=== PATIENT | male | born 2000 | race Caucasian/White ===

== ENCOUNTER 2018-05-22 | Emergency (ER) | payer OTHER | END 2018-05-22 21:20 | disposition home or self-care (01) ==

== ENCOUNTER 2018-12-05 00:28 | Emergency (ER) | payer MEDICAID | END 2018-12-05 05:00 | disposition home or self-care (01) ==

== ENCOUNTER 2018-12-13 00:53 | Emergency (ER) | payer MEDICAID ==
--- NOTE | 2018-12-13 01:01 | EDPHY ---
H & P Stated Complaint: Cough, SI, sleep deprivation Time Seen by Provider: 12/13/18 01:01 HPI/ROS: HPI CHIEF COMPLAINT: Suicide ideation, aggressiveness. HISTORY OF PRESENT ILLNESS: Patient is a 18-year-old male, presents emergency room by walking into the front door, stating that he suicidal wants to kill himself. He states that he is homeless, he reports to me has a history of bipolar disorder not on any medications. Additionally complains of a sore throat. His main complaint suicidal ideation and worsening depression. Patient arrives in his verbally aggressive with myself and also takes physical aggressive stance in the room. Additionally the patient complains of a sore throat however will not expand further about details about this. Past Medical History: History of bipolar disorder according to the patient. Past Surgical History: Denies recent surgical history Social History: Denies recent drug use alcohol tobacco. Family History: Noncontributory ROS REVIEW OF SYSTEMS: 10 Systems were reviewed and negative with the exception of the elements mentioned in the history of present illness. Exam Constitutional angry, triage nursing summary reviewed, vital signs reviewed, awake/alert. Eyes normal conjunctivae and sclera, EOMI, PERRLA. HENT normal inspection, atraumatic, moist mucus membranes, no epistaxis, neck supple/ no meningismus, no raccoon eyes. Respiratory clear to auscultation bilaterally, normal breath sounds, no respiratory distress, no wheezing. Cardiovascular rate normal, regular rhythm, no murmur, no edema, distal pulses normal. Gastrointestinal soft, non-tender, no rebound, no guarding, normal bowel sounds, no distension, no pulsatile mass. Genitourinary no CVA tenderness. Musculoskeletal no midline vertebral tenderness, full range of motion, no calf swelling, no tenderness of extremities, no meningismus, good pulses, neurovascularly intact. Skin pink, warm, & dry, no rash, skin atraumatic. Neurologic awake, alert and oriented x 3, AAOx3, moves all 4 extremities equally, motor intact, sensory intact, CN II-XII intact, normal cerebellar, normal vision, normal speech. Psychiatric suicidal and depressed. Angry. Heme/Lymph/Immune no lymphadenopathy. Differential Diagnosis: Includes but is not limited to in a particular order underlying mood disorder, bipolar disorder, depression, suicidal ideation Medical Decision Making: Plan for this patient he will be placed on M1 hold, he will need blood draw for medical clearance. Will check strep and influenza. Re-evaluation: 1:11 a.m. Patient placed on M1 hold 0600AM: Patient sleeping. NAD. Medically cleared. Needs Mental Health Eval. Per patient, states he is Bipolar, homeless. 0700AM: Pending eval. Signed over to Dr. Melendez at this time. Source: Patient - Personal History Current Tetanus Diphtheria and Acellular Pertussis (TDAP): No - Medical/Surgical History Hx Asthma: No Hx Chronic Respiratory Disease: No Hx Diabetes: No Hx Cardiac Disease: No Hx Renal Disease: No Hx Cirrhosis: No Hx Alcoholism: No Hx HIV/AIDS: No Hx Splenectomy or Spleen Trauma: No Other PMH: Anxiety. seizure disorder - Social History Smoking Status: Never smoked Constitutional: Initial Vital Signs Temperature (C) 37.2 C 12/13/18 00:55 Heart Rate 79 12/13/18 00:55 Respiratory Rate 16 12/13/18 00:55 Blood Pressure 129/76 H 12/13/18 00:55 O2 Sat (%) 97 12/13/18 00:55 O2 Delivery Mode Room Air Allergies/Adverse Reactions: No Known Allergies Allergy (Unverified 12/13/18 00:55) Home Medications: Medication Instructions Recorded Tegretol 12/05/18 carBAMazepine [Tegretol] 200 mg PO BID #30 tab 12/05/18 Medical Decision Making - Data Points Laboratory Results: Laboratory Results 12/13/18 01:26 12/13/18 01:26 Departure - Departure Disposition: Law Enforcement/Court/Fdc Clinical Impression: Depression Qualifiers: Depression Type: other depression Qualified Code(s): F32.89 - Other specified depressive episodes Condition: Good Instructions: Depression (ED), Suicide Prevention (ED) Referrals: NONE *PRIMARY CARE P,. [Primary Care Provider] - As per Instructions
[2018-12-13 01:49] LABS: PLATELET COUNT 252 10^3/uL (150-400)
[2018-12-13 10:36] VITALS: BP 130/89
--- NOTE | 2018-12-13 12:24 | ASMTTLCEVL ---
TLC Evaluation - Basic Information Evaluation Start Date and 12/13/2018 10:10 AM Time Hospital Status Answers: M1 Hold 72-hr M1 Hold Start Date 12/13/2018 01:12 AM and Time Patient statement Notes: I tried going to those homeless shelters, but theyre all mother fuckers. I need a place where I can get meals every day and have group therapy. Narrative Notes: Pt is a 18 yo, homeless, unemployed, male who initially self-presented on a voluntary basis to [facility] ED early in the morning around 2 a.m., complaining of sore throat and flu-like symptoms, also stating that he is having suicidal ideation and feeling depressed and wants to kill himself. Pt was placed on M1 hold by ED provider which noted: Patient is SI, depressed, states he wants to kill himself. BAL was zero. UDS results were negative for all tested substances. In review of recent [facility] records, pt had been seen for flu-like symptoms about a week ago on 12/05/18 and had an elevated WBC of 17.52. He did not endorse any suicidal ideations at that time. He was given a prescription for Tegretol and encouraged to follow up with [facility]. ED nursing note at 0242 hrs today indicated that pt was sleeping on the gurney mattress which pt had placed on the floor, respirations even and unlabored. Pt slept throughout the night and was asleep when awoken at 1000 hrs to conduct the MH evaluation. Pt did not require any emergency medications while in the ED. Pt initially presented as quite polite, cooperative and respectful, referring to milk inspector as sir. He appeared to be faking bad in over-endorsing his responses to the BDI/BSS questionnaires. At mid-way point of interview, pt was asked how motivated do you see yourself being in wanting to get help and his response was a 10 out of 10 (with 10 being highest motivation). When pt was informed that patients have the right to receive medical and psychiatric care and treatment in the least restrictive treatment setting possible, suited to meet the individuals needs, and suggested that he likely will not meet criteria for hospitalization and could follow up with his high level of motivation to get help on an outpatient basis, his tone volume increased, he became less cooperative with the interview process and used profanity frequently. Pt reported he was recently admitted to [facility] on 10/26/18 for 1 day and while there, he was arrested by police for assault and destruction of property while there after he reported he threw chairs at the wall and broke printers. Pt reported he was released from intermediate on 11/22/18 after being incarcerated 26 days. He reported he has a court appearance on 12/30/18. Pt was informed of [facility] posted policy that violence will not be tolerated in the hospital and that [facility] supports staff in pressing charges for aggressive behavior. Pt stated, yeah, its different here in [place] than in [place]. Diagnosis History Notes: Unknown. Prior suicide attempts Notes: Pt reported in a vague manner that he had had a couple of prior suicide attempts but then stated, I dont remember maybe I tried to swallow glass. Prior hospitalizations Notes: Pt reported having been briefly hospitalized for a week in September 2018 at [facility] in [place], [place] and again for one day at the same hospital, was given a shot of some type of medicine and discharged to the [facility]. Pt reported he was recently admitted to [facility] on 10/26/18 for 1 day and while there, he was arrested by police for assault and destruction of property while there after he reported he threw chairs at the wall and broke printers. Treatment Responses Notes: None. History of violence Notes: Pt reported he was recently admitted to [facility] on 10/26/18 for 1 day and while there, he was arrested by police for assault and destruction of property while there after he reported he threw chairs at the wall and broke printers. Therapist: None. [facility] collateral reported that pt has been seen a couple of times at the [facility]. He had a full intake assessment appointment with [facility] back in June 2018 but pt failed to appear. Psychiatrist: None. Medications (name, dosage, route, freq uency) Notes: None currently. Pt reported he has not been taking Tegretol 200 mg po BID for his epilepsy/seizure disorder for the past 3-4 months. Allergies/Reaction Notes: NKDA. Sleep Notes: Pt reported getting 9 hours per night but added not enough. Appetite Notes: WNL. Pt stated he gets food from all over. Medical/Surgical history Notes: Reported history of epilepsy and seizure disorder. Pt currently having complaint of flu-like symptoms and sore throat. Substance use history (frequency, intensity, his tory, duration) Notes: Pt denied any history of using alcohol because my father was an alcoholic. He reported having first tried marijuana at age 16 but denied any use since age 17. He otherwise denied any history of use of any other illicit substances. BAL zero. UDS results were negative for all tested substances. Family composition Notes: Pt reported that his father when pt was 5 yo. Pt refused to provide any further information about fathers other than his father reportedly was an alcoholic. He reported that is mother is not around. When pt was asked about siblings, his response was a fucking lot but refused to provide any further information. Need for family Answers: No participation in patient's care Family psychiatric/substance abuse history Notes: Pt refused to provide any further information about fathers other than his father reportedly was an alcoholic. Developmental history Notes: Pt reported he was born in [place], [place] and lived there until age 5, which was pts age when his father reportedly of unreported reasons. Pt refused to provide any further information regarding his childhood experiences and family of origin. Abuse concerns Answers: None Marital status/children Notes: Pt is single, never , no dependents. Living situation Notes: Homeless. Pt reported he had been in [place], then went to [place], [place] for about 10 days, then came to [place] about 2 months ago. He spent 26 days in intermediate after being hospitalized one day at [facility] on 10/26/18 and while there, he was arrested by police for assault and destruction of property while there after he reported he threw chairs at the wall and broke printers. He was released on 11/22/18. Sexual history/orientation Notes: Not active. Heterosexual. Peer support/family strengths Notes: None identified. Education level/history Notes: Pt reported having a high school education. Work history Notes: Unemployed. Notes: None. Legal Notes: Pt reported he was recently admitted to [facility] on 10/26/18 for 1 day and while there, he was arrested by police for assault and destruction of property while there after he reported he threw chairs at the wall and broke printers. Pt reported he was released from intermediate on 11/22/18 after being incarcerated 26 days. He reported he has a court appearance on 12/30/18. Jain/Spiritual Notes: None identified which may impact treatment. Leisure Notes: None reported. Collateral Notes: None. Patient's strengths Answers: Athletic (Please select at least TWO strengths): Motivated for Treatment Willingness [facility] Evaluation - Mental Status Exam Appearance: Answers: Unclean Unkempt Eye Contact: Answers: Intermittent Mood: Answers: Irritable Affect: Answers: Angry Hostile Labile Behavior: Answers: Uncooperative Combative Guarded Manipulative Menacing Speech: Answers: Relevant Logical Clear Coherent Threatening Verbally Abusive Thought Process: Answers: Organized Oriented Alert Goal Oriented Intact Insight: Answers: Fair Judgement: Answers: Fair Depression Answers: Psychomotor Agitation Signs/Symptoms: Hallucinations: Answers: None Current Stage of Change Answers: Precontemplation Pt reported to have Answers: Yes suicidal/self-injuring ideation/behavior? Pt reported to be making Answers: Yes suicidal/self-injuring threats? Pt reported to have Answers: Yes aggression/assault ideation/behavior? Pt reported to be making Answers: Yes aggression/assault threats? Pt exhibits inability to Answers: No care for self/grave disability? Ideation/behavior is Answers: No chronic? Patient has a specific Answers: No plan? Pt has access to means to Answers: No execute the plan? Ideation involves Answers: No serious/lethal intent? Ideation has Answers: No delusional/hallucinatory content? History of Answers: Yes suicidal/self-injuring ideation, behavior, or threats? History of Answers: Yes aggressive/assaultive ideation, behavior, or threats? History of serious Answers: Yes physical harm to self/others while in treatment setting? [facility] Evaluation - Suicide/Homicide Risk Suicide Risk Factors: Answers: Agitation Cluster "B" D/O or Traits Financial Difficulties Impulsivity Inadequate Social Support Lack of Jain Support Lack of Social Support Lack/Loss of Employment Legal Difficulties Low Intelligence Single Unstable Living Situation Homicide/violence risk Answers: Antisocial Personality DO factors: Cluster "B" D/O or Traits Previous Hx of Violence Threats Towards Others Violence Towards Others Current Suicidal Answers: Yes Ideation? Current Suicidal Ideation Answers: No in the Past 48 Hours? Current Suicidal Ideation Answers: No in the Past Month? Current Suicidal Answers: No Ideation, Worst Ever? Suicide Internal Answers: Absence of Psychosis Protective Factors: Suicide External Answers: None Protective Factors: Ranking of patient's Answers: Low suicidal risk: Ranking of patient's Answers: Low homicidal risk: [facility] Evaluation - Wrap-up BDI Total Score: 54 BDI Question #2 Score: 2 BDI Question #9 Score: 2 BSS Total Score: 26 AXIS I Diagnosis (include DSM-V and ICD-10 codes), must also be entered in [employer] systems, which is the source of truth. Notes: Malingering V65.2 (Z76.5) Antisocial Personality Disorder 301.7 (F60.2) In consultation with [facility] ED physician, Geronimo Melendez MD, Dr. Melendez concurred that pt does not appear to meet 27-65 criteria requiring psychiatric hospitalization as pt does not appear to be an imminent risk of harm to self/others/gravely disabled due to a mental illness condition. Dr. Melendez provided verbal order read back vacating M1 hold at 1055 hrs. Evaluation End Date and 12/13/2018 11:20 AM Time (HH:MM): Date Signed: 12/13/2018 12:24 PM Electronically Signed By:Oliver Melvin
--- NOTE | 2018-12-13 12:25 | ASMTTCLDSP ---
TLC Discharge Disposition Disposition: Answers: Discharge If Answers: Yes DISCHARGED: Patient/family given suicide hotline info & [facility] brochure? Disposition Notes: Notes: Pt was given follow literature to [facility] and local hotline information and [facility] brochure After an Attempt and encouraged to follow up with [facility]. Pt was escorted by [facility] security staff and while walking with security in the ambulance bay area, pt became hostile and spit on physical security manager. [employer] was contacted and pt was taken to longterm. Discharge Concerns/Recommendations: Notes: In consultation with [facility] ED physician, Geronimo Melendez MD, Dr. Melendez concurred that pt does not appear to meet 27-65 criteria requiring psychiatric hospitalization as pt does not appear to be an imminent risk of harm to self/others/gravely disabled due to a mental illness condition. Dr. Melendez provided verbal order read back vacating M1 hold at 1055 hrs. Was patient given the Answers: Not applicable Inpatient Behavioral Health Prohibited Belongings List while in the ED? Psychiatrist vacating M1 Geronimo Melendez MD Hold: Date and time M1 hold 12/13/2018 10:55 AM vacated (time format is hh:mm): Type of Hold: Answers: M1/72-hour Hold Hold initiated by: Answers: ED Physician Date Signed: 12/13/2018 12:25 PM Electronically Signed By:Oliver Melvin
== END 2018-12-13 11:50 ==
DX: F32.89 Other specified depressive episodes (principal); Z59.0 Homelessness
CPT/HCPCS: 80305; G0480

== ENCOUNTER 2019-02-02 07:24 | Emergency (ER) | payer MEDICAID ==
--- NOTE | 2019-02-02 07:28 | EDPHY ---
H & P Time Seen by Provider: 02/02/19 07:27 HPI/ROS: CHIEF COMPLAINT: Seizure HISTORY OF PRESENT ILLNESS: Patient is a 18-year-old homeless man with a history of epilepsy on Tegretol. [place] on the [employer] [place] and had to be woken up by [employer]. After waking up he seemed confused and vomited. EMS was called. The patient has now normalized and is asking to leave because he has a court appointment at 9:00 a.m. That he cannot miss. He states that he often feels nauseous and occasionally vomits after having a seizure. He states that this is somewhat typical for him. He declines treatment and is eager to go to make his appointment. He denies having any pain currently. Severity: Moderate Modifying factors: Resolved REVIEW OF SYSTEMS: Constitutional: denies: chills, fever, recent illness, recent injury EENTM: denies: blurred vision, double vision, nose congestion Respiratory: denies: cough, shortness of breath Cardiac: denies: chest pain, irregular heart rate, lightheadedness, palpitations Gastrointestinal/Abdominal: denies: abdominal pain, diarrhea, nausea, vomiting, blood streaked stools Genitourinary: denies: dysuria, frequency, hematuria, pain Musculoskeletal: denies: joint pain, muscle pain Skin: denies: lesions, rash, jaundice, bruising Neurological: denies: headache, numbness, paresthesia, tingling, dizziness, weakness Hematologic/Lymphatic: denies: blood clots, easy bleeding, easy bruising Immunologic/allergic: denies: HIV/AIDS, transplant 10 systems reviewed and negative except as noted EXAM: GENERAL: Disheveled, foul smelling, and in no acute distress. HEAD: Atraumatic, normocephalic. EYES: Pupils equal round and reactive to light, extraocular movements intact, sclera anicteric, conjunctiva are normal. ENT: TMs normal, nares patent, oropharynx clear without exudates. Moist mucous membranes. NECK: Normal range of motion, supple without lymphadenopathy or JVD. LUNGS: Breath sounds clear to auscultation bilaterally and equal. No wheezes rales or rhonchi. HEART: Regular rate and rhythm without murmurs, rubs or gallops. ABDOMEN: Soft, nontender, normoactive bowel sounds. No guarding, no rebound. No masses appreciated. BACK: No CVA tenderness, no spinal tenderness, step-offs or deformities EXTREMITIES: Normal range of motion, no pitting or edema. No clubbing or cyanosis. NEUROLOGICAL: Cranial nerves II through XII grossly intact. Normal speech, normal gait. 5/5 strength, normal movement in all extremities, normal sensation , normal reflexes PSYCH: Normal mood, normal affect. SKIN: Warm, dry, normal turgor, no visible rashes or lesions. Source: Patient Exam Limitations: No limitations - Medical/Surgical History Hx Asthma: No Hx Chronic Respiratory Disease: No Hx Diabetes: No Hx Cardiac Disease: No Hx Renal Disease: No Hx Cirrhosis: No Hx Alcoholism: No Hx HIV/AIDS: No Hx Splenectomy or Spleen Trauma: No Other PMH: Anxiety. seizure disorder - Family History Significant Family History: No pertinent family hx - Social History Smoking Status: Current some day smoker Alcohol Use: Heavy Drug Use: Marijuana Constitutional: Initial Vital Signs Temperature (C) 36.7 C 02/02/19 07:29 Heart Rate 93 02/02/19 07:29 Respiratory Rate 16 02/02/19 07:29 Blood Pressure 118/74 02/02/19 07:29 O2 Sat (%) 97 02/02/19 07:29 O2 Delivery Mode Room Air Allergies/Adverse Reactions: No Known Allergies Allergy (Unverified 12/13/18 00:55) Home Medications: Medication Instructions Recorded Tegretol 12/05/18 carBAMazepine [Tegretol] 200 mg PO BID #30 tab 12/05/18 Medical Decision Making ED Course/Re-evaluation: The patient appears to have been postictal and vomited. He states that this is somewhat typical for him. His abdominal exam is completely benign. He currently is asymptomatic and declines treatment. He is eager to get to the [facility]. Will discharge at this time. Discussed indications for returning. encouraged him to continue taking his seizure medications. Differential Diagnosis: Partial list of the Differential diagnosis considered include but were not limited to; epilepsy, head injury, gastroenteritis and although unlikely based on the history and physical exam, I also considered []. I discussed these differential diagnoses and the plan with the [patient] as well as the usual and expected course. The [patient understands] that the diagnosis is provisional and that in medicine we are not always correct and that further workup is often warranted. Usual and customary warnings were given. All of the [patient's] questions were answered. The [patient was] instructed to return to the emergency department should the symptoms at all worsen or return, otherwise to followup with the physician as we discussed. Departure - Departure Disposition: Home, Routine, Self-Care Clinical Impression: Seizure disorder Vomiting Qualifiers: Vomiting type: unspecified Vomiting Intractability: non-intractable Nausea presence: without nausea Qualified Code(s): R11.11 - Vomiting without nausea Condition: Fair Instructions: Epilepsy (ED), Acute Nausea and Vomiting (ED) Additional Instructions: Take your Tegretol as prescribed. Referrals: Patient,NotPresent [Unknown] - As per Instructions [facility],. [Clinic] - As per Instructions
[2019-02-02 07:31] VITALS: BP 118/74
== END 2019-02-02 07:35 | disposition home or self-care (01) ==
LOC: EDUNIT#
DX: G40.909 Epilepsy, unspecified, not intractable, without status epilepticus (principal); R11.11 Vomiting without nausea; F41.9 Anxiety disorder, unspecified; F17.200 Nicotine dependence, unspecified, uncomplicated; F12.90 Cannabis use, unspecified, uncomplicated

== ENCOUNTER 2019-02-03 21:04 | Emergency (ER) | payer MEDICAID ==
[2019-02-03 21:10] VITALS: BP 130/77
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
== END 2019-02-03 22:47 | disposition home or self-care (01) ==
DX: S01.81XA Laceration without foreign body of other part of head, initial encounter (principal); W22.8XXA Striking against or struck by other objects, initial encounter

== ENCOUNTER 2019-02-13 09:31 | Emergency (ER) | payer MEDICAID ==
[2019-02-13 09:37] VITALS: BP 127/58
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
== END 2019-02-13 10:14 | disposition home or self-care (01) ==
DX: R20.8 Other disturbances of skin sensation (principal); F31.9 Bipolar disorder, unspecified; F41.9 Anxiety disorder, unspecified; F17.200 Nicotine dependence, unspecified, uncomplicated

== ENCOUNTER 2019-03-03 09:24 | Emergency (ER) | payer MEDICAID | END 2019-03-03 13:07 | disposition home or self-care (01) ==